=== PATIENT | female | born 1995 | race African-American/Black ===

== ENCOUNTER 2021-12-27 19:42 | Emergency (ER) | payer OTHER ==
[~2021-12-27] VITALS: Ht 172.7 cm; Wt 85.3 kg
[2021-12-27 20:40] VITALS: BP 118/88; TEMP 98.2
== END 2021-12-27 20:40 | disposition home or self-care (01) ==
LOC: ED 19:42
DX: H00.014 Hordeolum externum left upper eyelid (principal)
CPT/HCPCS: 99281

== ENCOUNTER 2022-01-28 00:04 | Emergency (ER) | payer OTHER ==
[~2022-01-28] VITALS: Ht 172.7 cm; Wt 85.3 kg
[2022-01-28 01:16] LABS: PLATELET COUNT 235 K/uL (152-353)
[2022-01-28 01:28] LABS: POTASSIUM 3.2 mmol/L (3.6-5.2)
[2022-01-28 05:30] VITALS: BP 102/60; TEMP 98.6
== END 2022-01-28 05:30 | disposition home or self-care (01) ==
LOC: ED 00:04
PROVIDERS: Hospitalist
PROC: 0T9B70Z Drainage of Bladder with Drainage Device, Via Natural or Artificial Opening (ICD-10-PCS; principal; 2022-01-28)
DX: F10.129 Alcohol abuse with intoxication, unspecified (principal); Y90.7 Blood alcohol level of 200-239 mg/100 ml; E87.6 Hypokalemia; R11.2 Nausea with vomiting, unspecified
CPT/HCPCS: 36415; 51702; 80053; 80307; 80320; 81000; 81025; 82550; 83880; 84484; 85027; 93005; 96365; 96366; 96375; 99284; J2405; J3411; J3475; J3490